=== PATIENT | male | born 1965 | race Caucasian/White ===

== ENCOUNTER → 2016-02-17 | Outpatient (CLI) | payer BC ==
[~2016-02-17] MED LIST: CLR10 PO; GLC/500 PO; OXYC-57 PO; PHEN-775 PO; RIVA1TAB4 PO; TAMS0.4C38 PO; TRAM-10 PO
--- NOTE | 2016-02-17 13:03 | DIAGNOSTIC IMAGING REPORT ---
RIGHT LOWER EXTREMITY VENOUS DOPPLER CLINICAL HISTORY: Follow up deep venous thrombus. COMPARISON STUDY: Right lower extremity venous Doppler November 18, 2015. TECHNIQUE: Sonography of the deep venous system of the right lower extremity was performed. Compression and augmentation were evaluated. FINDINGS: The right common femoral vein is patent. There is nonocclusive thrombus within right distal superficial femoral vein. There is extensive thrombus within the right popliteal vein. A small portion is occlusive. There is nonocclusive thrombus within the right peroneal and posterior tibial veins. Comparison by sonography is difficult. The extent of thrombosis is similar to exam of November 18, 2015 with possible slight improvement. IMPRESSION: Persistent deep venous thrombus within the right femoral, popliteal, posterior tibial and peroneal veins. Comparison by sonography is difficult although the amount of thrombus appears relatively similar to exam of November 18, 2015 with possible slight improvement. Electronically signed by: Emmett Velasco M.D. 02/17/2016 1:01 PM Dictated Date/Time: 02/17/2016 12:58 PM
== END | disposition home or self-care (01) ==
LOC: C.ULTR 12:04
PROVIDERS: ATTEND Family Medicine
DX: I82.4Z1 Acute embolism and thrombosis of unspecified deep veins of right distal lower extremity (principal)

== ENCOUNTER 2016-05-14 20:56 | Emergency (ER) | payer BC ==
[~2016-05-14] VITALS: Ht 188 cm; Wt 125.1 kg
[2016-05-14 21:14] VITALS: TEMP 37.7; Ht 188 cm; Wt 125.1 kg
[2016-05-14] MEDS ORDERED: GLC/500 PO (21:33)
[2016-05-14] MEDS ORDERED: RIVA1TAB4 PO (21:33)
[2016-05-14] MEDS ORDERED: CLR10 PO (21:33)
--- NOTE | 2016-05-14 21:43 | DIAGNOSTIC IMAGING REPORT ---
RIGHT HAND 3 VIEWS HISTORY: right wrist pain Right COMPARISON: None. FINDINGS: There is no fracture or dislocation. Soft tissues are unremarkable. No radiopaque foreign bodies. IMPRESSION: No fractures. Electronically signed by: Ricardo Joshi M.D. 05/14/2016 9:41 PM Dictated Date/Time: 05/14/2016 9:36 PM
[2016-05-14] MEDS ORDERED: TRAMADOL HCL 50 MG TAB PO STA (21:56)
[2016-05-14 22:16] LABS: BASO % 0.5 %; BASO ABS # 0.04 K/uL (0-0.2); COMPLETE YES; EOS % 2.1 %; HEMATOCRIT 43.8 % (42-52); IG% 0.2 %; LYMPH % 13.4 %; LYMPH ABS # 1.17 K/uL (1.2-3.4); MEAN CELL VOLUME 85.9 fL (80-100); MEAN CORPUSCULAR HEMOGLOBIN 30.2 pg (25-34); MEAN CORPUSCULAR HGB CONC 35.2 g/dl (32-36); MONO % 7.8 %; PLATELET COUNT 200 K/uL (130-400); WHITE BLOOD COUNT 8.75 K/uL (4.8-10.8)
--- NOTE | 2016-05-14 22:23 | DIAGNOSTIC IMAGING REPORT ---
RIGHT WRIST 5 VIEWS HISTORY: right wrist pain Right COMPARISON: None. FINDINGS: There is no fracture or dislocation. Mild soft tissue swelling. No radiopaque foreign bodies. IMPRESSION: No fractures. Electronically signed by: Ricardo Joshi M.D. 05/14/2016 10:21 PM Dictated Date/Time: 05/14/2016 10:20 PM
[2016-05-14 22:40] LABS: BUN/CREATININE RATIO 15.3 (10-20); C-REACTIVE PROTEIN 0.94 mg/dl (0-0.29); CREATININE 1.1 mg/dl (0.60-1.40); POTASSIUM 4.1 mmol/L (3.5-5.1)
[2016-05-14 22:47] LABS: URIC ACID 8.4 mg/dl (2.6-7.2)
[2016-05-14 23:12] LABS: LYME DISEASE AB IGG NEG (NEG); LYME DISEASE AB IGM NEG (NEG)
[2016-05-14] MEDS ORDERED: TRAM-10 PO (23:37)
[2016-05-14] MEDS ORDERED: TRAMADOL HCL 50 MG HOME PACK PO ONE (23:45)
[2016-05-14 23:46] VITALS: BP 144/87; PULSE 74; O2SAT 99
--- NOTE | 2016-05-15 03:49 | EMERGENCY ROOM VISIT NOTE ---
History First contact with patient: 21:48 Chief Complaint: WRIST PAIN Stated Complaint: R WRIST INJURY History of Present Illness The patient is a 50 year old male who presents to the Emergency Room with complaints of right wrist pain and swelling for the past day who did a lot of outdoor work yesterday. Patient currently on Xarelto for DVT in the right leg. He has a history Of gout but this feels different. He's had tick bites before. Patient denies fall, direct injury to the wrist, hand pain, forearm pain, elbow pain, numbness, tingling, fever, chills. Patient states movement makes it worse and nothing makes it better. Pain is currently 5 out of 10. He tried Tylenol with no relief of symptoms. Review of Systems See HPI for pertinent positives & negatives. A total of 6 systems reviewed and were otherwise negative. Past Medical/Surgical History Gout, diabetes, DVT, seasonal allergies Social History Smoking Status: Never Smoker Smokeless Tobacco Use: No Alcohol Use: none Drug Use: none Occupation Status: employed Current/Historical Medications Scheduled Loratadine (Claritin), 10 MG PO DAILY Metformin Hcl (Glucophage), 500 MG PO DAILY Rivaroxaban (Xarelto), 20 MG PO DAILY Scheduled PRN Tramadol (Ultram), 1 TAB PO Q4H PRN for Pain Physical Exam Vital Signs Date Time Temp Pulse Resp B/P Pulse Ox O2 Delivery O2 Flow Rate FiO2 05/14/16 23:46 74 16 144/87 99 05/14/16 21:14 37.7 76 18 154/93 100 Room Air Pain Rating (0-10): 0 Physical Exam VITALS: Vitals are noted on the nurse's note and reviewed by myself. Vital signs stable. GENERAL: Pleasant male, in no acute distress, nondiaphoretic, well-developed well-nourished. SKIN: Capillary reflex less than 2 seconds. HEENT: Normocephalic. PERRLA. EOMI. Nares patent. Mucous membranes moist. Neck is supple without nuchal rigidity. HEART: Regular rate and rhythm without murmurs gallops or rubs. LUNGS: Clear to auscultation bilaterally without wheezes, rales or rhonchi. No retractions or accessory muscle use. MUSCULOSKELETAL: No gross musculoskeletal defects. Right wrist tender to palpation with increased pain with range of motion is slightly edematous without erythema or warmth. Right forearm, right elbow, right hand nontender to palpation with full range of motion. Radial pulses +2 equal present bilaterally. NEURO: Patient was alert and oriented to person place and time. Normal sensation to light and sharp touch. No focal neurological deficits. Medical Decision & Procedures Laboratory Results 05/14/16 22:03 Red Blood Count 5.10, Mean Corpuscular Volume 85.9, Mean Corpuscular Hemoglobin 30.2, Mean Corpuscular Hemoglobin Concent 35.2, Mean Platelet Volume 9.0, Neutrophils (%) (Auto) 76.0, Lymphocytes (%) (Auto) 13.4, Monocytes (%) (Auto) 7.8, Eosinophils (%) (Auto) 2.1, Basophils (%) (Auto) 0.5, Neutrophils # (Auto) 6.66, Lymphocytes # (Auto) 1.17, Monocytes # (Auto) 0.68, Eosinophils # (Auto) 0.18, Basophils # (Auto) 0.04 05/14/16 22:03 Test 05/14/16 22:03 White Blood Count 8.75 K/uL (4.8-10.8) Red Blood Count 5.10 M/uL (4.7-6.1) Hemoglobin 15.4 g/dL (14.0-18.0) Hematocrit 43.8 % (42-52) Mean Corpuscular Volume 85.9 fL (80-100) Mean Corpuscular Hemoglobin 30.2 pg (25-34) Mean Corpuscular Hemoglobin Concent 35.2 g/dl (32-36) Platelet Count 200 K/uL (130-400) Mean Platelet Volume 9.0 fL (7.4-10.4) Neutrophils (%) (Auto) 76.0 % Lymphocytes (%) (Auto) 13.4 % Monocytes (%) (Auto) 7.8 % Eosinophils (%) (Auto) 2.1 % Basophils (%) (Auto) 0.5 % Neutrophils # (Auto) 6.66 K/uL (1.4-6.5) Lymphocytes # (Auto) 1.17 K/uL (1.2-3.4) Monocytes # (Auto) 0.68 K/uL (0.11-0.59) Eosinophils # (Auto) 0.18 K/uL (0-0.5) Basophils # (Auto) 0.04 K/uL (0-0.2) RDW Standard Deviation 43.3 fL (36.4-46.3) RDW Coefficient of Variation 13.8 % (11.5-14.5) Immature Granulocyte % (Auto) 0.2 % Immature Granulocyte # (Auto) 0.02 K/uL (0.00-0.02) Erythrocyte Sedimentation Rate 10 mm/hr (0-14) Anion Gap 8.0 mmol/L (3-11) Est Creatinine Clear Calc Drug Dose 114.2 ml/min Estimated GFR () 90.9 Estimated GFR (Non- 78.4 BUN/Creatinine Ratio 15.3 (10-20) Uric Acid 8.4 mg/dl (2.6-7.2) Calcium Level 9.0 mg/dl (8.5-10.1) C-Reactive Protein 0.94 mg/dl (0-0.29) Lyme Disease IgG Antibody NEG (NEG) Lyme Disease IgM Antibody NEG (NEG) Medications Administered Medications (Trade) Dose Ordered Sig/Javed Route Start Time Stop Time Status Last Admin Dose Admin Tramadol HCl (Ultram Tab) 50 mg ONE STAT PO 05/14/16 21:56 05/14/16 21:58 DC 05/14/16 22:02 50 MG Tramadol HCl (Ultram Home Pack) 1 homepack UD ONCE PO 05/14/16 23:45 05/14/16 23:46 DC 05/14/16 23:44 1 HOMEPACK ED Course Prior records reviewed and summarized as above. Triage Nursing notes reviewed. The patient's history was concerning for swelling and pain of the wrist. Differential diagnosis: Etiologies such as sprain, strain, fracture, gout, dislocation, cellulitis, septic joint, DVT, Lyme's disease, tendinitis, carpal tunnel, as well as others were entertained.. Physical examination: As above ER treatment provided: Ultram, wrist splint On reassessment the patient felt better. Diagnostics interpreted by me: The labs revealed slightly elevated uric acid. No leukocytosis. Negative Lyme' s test Imaging studies: Wrist and hand x-ray negative for fracture per radiology This appears to be wrist pain most likely from overuse. Patient was placed in a splint for comfort and neurovascular status is rechecked after placement and is intact. He was advised to follow-up with his orthopedist, Dr. Plasencia, in a few days or here in the ER sooner for severe pain, numbness, tingling, fevers, worsening signs or symptoms or as needed. She had no signs of septic joint. No white count. He was well-appearing. By the evaluation outlined above emergent etiologies such as fracture, septic joint, DVT, as well as others were deemed relatively unlikely. The pt informed about the findings as listed above. All questions were answered and pleased with the treatment. Return instructions were outlined and the patient was discharged in stable condition. Outpatient prescription management: Ultram Referral: The patient was referred back to the orthopedics for follow-up in 2 to 3 days for a recheck of the current condition. Case reviewed with my attending Medical Decision As above Impression Primary Impression: Wrist pain, right Departure Information Dispostion Home / Self-Care Condition GOOD Prescriptions Tramadol (Ultram) 50 Mg Tab 1 TAB PO Q4H Y for Pain, #14 TAB For Initial Treatment Prov: Wilma Pierce ., JEEVAN 05/14/16 Referrals Yimi Daniels M.D. (PCP) Forms WORK / SCHOOL INSTRUCTIONS, HOME CARE DOCUMENTATION FORM, IMPORTANT VISIT INFORMATION Patient Instructions My [facility] Additional Instructions Acetaminophen(Tylenol) may be used for fever or pain. Use 1000mg every six hours as needed. Avoid using more than 3000mg in a 24 hour period. This medication can be taken if you need to drive, work, or perform activities which may be dangerous when taking narcotic pain medication. Ultram 50m tablet every 4 hours as needed for severe pain. Ice compresses for 20 minutes at a time four times daily for 2-3 days. Rest and elevate your injury. Wear wrist splint for comfort. Do not have it so tight that you cannot feel your fingers. Continue current medications. Return to the ER immediately for any numbness, tingling, severe pain, extreme swelling in the extremity or as needed. Call your Orthopedics tomorrow to arrange follow up for your injury.
[2016-10-12] MEDS ORDERED: TAMS0.4C38 PO (13:32)
[2016-10-13] MEDS ORDERED: OXYC-57 PO (10:31)
[2016-10-13] MEDS ORDERED: PHEN-775 PO (10:31)
== END 2016-05-14 23:47 | disposition home or self-care (01) ==
LOC: C.EDB 20:58
DX: M25.531 Pain in right wrist (principal); E11.9 Type 2 diabetes mellitus without complications; M10.9 Gout, unspecified; Z86.718 Personal history of other venous thrombosis and embolism; Z79.84 Long term (current) use of oral hypoglycemic drugs; Z79.899 Other long term (current) drug therapy

== ENCOUNTER → 2016-05-26 | Outpatient (CLI) | payer BC ==
--- NOTE | 2016-05-26 11:29 | DIAGNOSTIC IMAGING REPORT ---
ULTRASOUND RIGHT LOWER EXTREMITY VENOUS CLINICAL HISTORY: Follow-up deep venous thrombosis. COMPARISON STUDY: Right lower extremity venous ultrasound dated 02/17/2016. TECHNIQUE: Real-time, grayscale, and color Doppler sonography of the deep veins of the right lower extremity was performed from the inguinal crease to the calf. Compression and augmentation were utilized. FINDINGS: Nonocclusive deep venous thrombosis is again seen within the right popliteal vein extending into the calf within a posterior tibial vein. The remaining calf vessels are patent. The common femoral and superficial femoral veins are patent and normally compressible. The greater saphenous vein and the profunda femoris vein at the junction with the common femoral vein are clear. The visualized calf veins are patent. IMPRESSION: There is nonocclusive deep venous thrombosis identified within the right popliteal vein and extending into the calf within a posterior tibial vein. This is likely chronic, and the burden of thrombus appears modestly improved from 02/17/2016. Electronically signed by: Sina Ureña M.D. 05/26/2016 11:26 AM Dictated Date/Time: 05/26/2016 11:23 AM
== END | disposition home or self-care (01) ==
LOC: C.ULTR 10:54
PROVIDERS: ATTEND Family Medicine
DX: I82.401 Acute embolism and thrombosis of unspecified deep veins of right lower extremity (principal)

== ENCOUNTER → 2016-06-07 | Outpatient (CLI) | payer BC ==
--- NOTE | 2016-06-07 11:08 | DIAGNOSTIC IMAGING REPORT ---
KUB CLINICAL HISTORY: R39.12 Weak urinary [id number] HISTORY OF BILATERAL NEPHROLITHIASIS COMPARISON STUDY: No previous studies for comparison. FINDINGS: There are clustered calcifications projected over the upper pole the left kidney, the largest of which measures 3 mm. Renal calculi are suspected. No definite right renal calculi are visualized. There is no pathologic bowel dilatation. IMPRESSION: Left-sided nephrolithiasis. Electronically signed by: Juaquin Cardona M.D. 06/07/2016 11:06 AM Dictated Date/Time: 06/07/2016 11:05 AM
== END | disposition home or self-care (01) ==
LOC: C.RAD 10:34
PROVIDERS: ATTEND Urology
DX: R39.12 Poor urinary stream (principal); N20.0 Calculus of kidney

== ENCOUNTER → 2016-08-31 | Outpatient (CLI) | payer BC ==
--- NOTE | 2016-08-31 12:55 | DIAGNOSTIC IMAGING REPORT ---
VENOUS DOPP LOWER EXT UNILAT CLINICAL HISTORY: DVT LE TECHNIQUE: Venous Doppler COMPARISON STUDY: 05/26/2016 FINDINGS: Identical study compared to the prior exam. Nonocclusive thrombus within the right popliteal vein as well as a solitary posterior tibial vein. No new or interval findings. All remaining venous structures are patent. IMPRESSION: Chronic thrombophlebitis involving the right popliteal vein and posterior tibial veins. This is unchanged from the prior study. No acute or interval process. The above report was generated using voice recognition software. It may contain grammatical, syntax or spelling errors. Electronically signed by: Heladio Jones M.D. 08/31/2016 12:54 PM Dictated Date/Time: 08/31/2016 12:52 PM
--- NOTE | 2016-08-31 19:06 | ECHOCARDIOGRAM REPORT ---
*NOTICE TO RECEIVING DEMOCRAT AGENCY This information is strictly Confidential and protected under [place] law. [place] law prohibits you from making any further disclosure of this information unless further disclosure is expressly permitted by the written consent of the person to whom it pertains or is authorized by law. A general authorization for the release of medical or other information is not sufficient for this purpose. Hospital accepts no responsibility if the information is made available to any other person, INCLUDING THE PATIENT. Interpretation Summary * Name: KIRT STEPHENSON Study Date: 08/31/2016 12:59 PM * Patient Location: [facility] * : 1965 (M/d/yyyy) Gender: Male Height: 75 in * Age: 50 yrs Ethnicity: CA Weight: 270 lb * Ordering Physician: Yimi Daniels * Referring Physician: Yimi Daniels * Performed By: Adan Reno RCS * * Reason For Study: DVT * BSA: 2.5 m2 * -- Conclusions -- * 1. Normal left ventricular size with hyperdynamic systolic function. EF 65-70%. No regional wall motion abnormalities. No left ventricular hypertrophy. Type I diastolic dysfunction. * 2. Mild left atrial dilation. * 3. No significant valvular abnormalities. * 4. Normal estimated right ventricular systolic pressure; RVSP 24 mmHg. * 5. No prior study available for comparison. Procedure Details * Left Ventricle The left ventricle is normal in size. There is normal left ventricular wall thickness. Ejection Fraction = 65-70%. The left ventricle is hyperdynamic. No regional wall motion abnormalities noted. * Right Ventricle The right ventricle is normal in size and function. The right ventricular systolic function is normal as assessed by tricuspid annular plane systolic excursion (TAPSE) (normal >1.5 cm). * Atria The left atrium is mildly dilated. Right atrial size is normal. There is no evidence of atrial septal defect, but resolution does not allow assessment for a patent foramen ovale. * Mitral Valve The mitral valve is normal in structure and function. There is no mitral regurgitation noted. * Tricuspid Valve The tricuspid valve is not well visualized, but is grossly normal. There is no tricuspid stenosis. Significant tricuspid regurgitation is absent. * Aortic Valve The aortic valve is trileaflet. No hemodynamically significant valvular aortic stenosis. No aortic regurgitation is present. * Pulmonic Valve The pulmonary valve is inadequately visualized, but the Doppler data is adequate for interpretation. There is no pulmonic valvular stenosis. There is no significant pulmonary regurgitation. * Great Vessels The aortic root is normal size. Normal pulmonary venous flow pattern. * Pericardium/Pleural There is no pericardial effusion. * Great Vessels IVC not well visualized, but appears top normal in size with normal inspiratory collapse. * * MMode 2D Measurements and Calculations * IVSd 0.86 cm * * LVIDd 4.8 cm * LVIDs 2.8 cm * LVPWd 0.98 cm * * IVS/LVPW 0.88 * FS 41.6 % * EDV(Teich) 105.1 ml * ESV(Teich) 28.9 ml * EF(Teich) 72.5 % * * EDV(cubed) 107.4 ml * ESV(cubed) 21.4 ml * EF(cubed) 80.1 % * * LV mass(C)d 149.1 grams * LV mass(C)dI 59.8 grams/m\S\2 * * SV(Teich) 76.2 ml * SI(Teich) 30.6 ml/m\S\2 * SV(cubed) 86.0 ml * SI(cubed) 34.5 ml/m\S\2 * * Ao root diam 3.5 cm * Ao root area 9.8 cm\S\2 * * LVOT diam 2.2 cm * LVOT area 3.9 cm\S\2 * * LVAd ap4 32.3 cm\S\2 * LVLd ap4 9.8 cm * EDV(MOD-sp4) 85.8 ml * EDV(sp4-el) 90.3 ml * LVAs ap4 16.8 cm\S\2 * LVLs ap4 7.5 cm * ESV(MOD-sp4) 31.0 ml * ESV(sp4-el) 32.0 ml * EF(MOD-sp4) 63.8 % * EF(sp4-el) 64.5 % * * SV(MOD-sp4) 54.8 ml * SI(MOD-sp4) 22.0 ml/m\S\2 * * SV(sp4-el) 58.2 ml * SI(sp4-el) 23.4 ml/m\S\2 * * * * Doppler Measurements and Calculations * MV E max yahir 68.1 cm/sec * MV A max yahir 88.9 cm/sec * * MV E/A 0.77 * * MV dec time 0.25 sec * * Ao V2 max 163.1 cm/sec * Ao max PG 10.6 mmHg * Ao max PG (full) 0.92 mmHg * NAZIA(V,A) 3.7 cm\S\2 * NAZIA(V,D) 3.7 cm\S\2 * * LV V1 max PG 9.7 mmHg * * LV V1 max 155.9 cm/sec * * TR max yahir 229.8 cm/sec * RVSP(TR) 24.1 mmHg * * RAP systole 3.0 mmHg * *
== END | disposition home or self-care (01) ==
LOC: C.ULTR 12:14
PROVIDERS: ATTEND Family Medicine
DX: I82.409 Acute embolism and thrombosis of unspecified deep veins of unspecified lower extremity (principal)

== ENCOUNTER → 2016-09-25 | Outpatient (CLI) | payer BC ==
--- NOTE | 2016-09-25 15:53 | DIAGNOSTIC IMAGING REPORT ---
KUB CLINICAL HISTORY: Nephrolithiasis. FINDINGS: 2 AP supine abdominal radiographs are compared to study dated 06/07/2016 and correlated with abdominal CT dated 09/12/2016. There is a nonobstructed abdominal bowel gas pattern. A 6 mm right ureteral calculus projects over the right transverse process of L4. An additional 4 mm nonobstructing calculus projects over the upper pole of the left kidney. No left ureteral calculus is seen. The bony structures appear intact. IMPRESSION: 1. A 6 mm calculus in the mid right ureter projects over the L4 transverse process. 2. An additional nonobstructing calculus is seen in the upper pole of the left kidney. Electronically signed by: Sina Ureña M.D. 09/25/2016 3:52 PM Dictated Date/Time: 09/25/2016 3:50 PM
== END | disposition home or self-care (01) ==
LOC: C.RAD 15:32
PROVIDERS: ATTEND Urology
DX: N20.0 Calculus of kidney (principal)

== ENCOUNTER → 2016-10-10 | Outpatient (CLI) | payer BC ==
[2016-10-10 13:23] LABS: BASO % 0.8 %; BASO ABS # 0.04 K/uL (0-0.2); COMPLETE YES; EOS % 4.9 %; HEMATOCRIT 46.6 % (42-52); IG% 0.2 %; LYMPH % 28.2 %; LYMPH ABS # 1.37 K/uL (1.2-3.4); MEAN CELL VOLUME 89.3 fL (80-100); MEAN CORPUSCULAR HEMOGLOBIN 29.1 pg (25-34); MEAN CORPUSCULAR HGB CONC 32.6 g/dl (32-36); MEAN PLATELET VOLUME 9.4 fL (7.4-10.4); MONO % 9.3 %; NEUT % 56.6 %; PLATELET COUNT 200 K/uL (130-400); RED BLOOD COUNT 5.22 M/uL (4.7-6.1); WHITE BLOOD COUNT 4.85 K/uL (4.8-10.8)
[2016-10-10 13:47] LABS: BLOOD UREA NITROGEN 12 mg/dl (7-18); BUN/CREATININE RATIO 12.2 (10-20); CALCIUM 9.3 mg/dl (8.5-10.1); CARBON DIOXIDE 30 mmol/L (21-32); CHLORIDE 104 mmol/L (98-107); CREATININE 0.95 mg/dl (0.60-1.40); GLUCOSE 91 mg/dl (70-99); POTASSIUM 4.1 mmol/L (3.5-5.1); SODIUM 138 mmol/L (136-145)
== END | disposition home or self-care (01) ==
LOC: C.CPL 12:35
PROVIDERS: ATTEND Urology
DX: N20.0 Calculus of kidney (principal)

== ENCOUNTER → 2016-10-12 | Outpatient (CLI) | payer BC ==
--- NOTE | 2016-10-12 15:35 | DIAGNOSTIC IMAGING REPORT ---
KUB CLINICAL HISTORY: Nephrolithiasis. FINDINGS: 2 AP supine abdominal radiographs are compared to study dated 09/25/2016 and correlated with abdominal CT dated 09/12/2016. There is a nonobstructed abdominal bowel gas pattern. A 6 mm right ureteral calculus has passed distally, and now projects over the vesicoureteral junction. An additional 4 mm nonobstructing calculus projects over the upper pole of the left kidney. No left ureteral calculus is seen. The bony structures appear intact. IMPRESSION: 1. A 6 mm calculus right renal calculus has passed distally as compared 09/25/2016, now projecting over the vesicoureteral junction. 2. An additional nonobstructing calculus is seen in the upper pole of the left kidney. Electronically signed by: Sina Ureña M.D. 10/12/2016 3:34 PM Dictated Date/Time: 10/12/2016 3:33 PM
== END | disposition home or self-care (01) ==
LOC: C.RAD1850 15:18
PROVIDERS: ATTEND Urology
DX: N20.0 Calculus of kidney (principal)

== ENCOUNTER → 2016-10-13 | Day surgery (SDC) | payer BC ==
[2016-10-12 13:32] VITALS: Ht 188 cm; Wt 125.0 kg
[~2016-10-13] VITALS: Ht 188 cm; Wt 125.0 kg
[~2016-10-13] MED LIST changes: +ATROPINE SULFATE 0.1 MG/ML 5ML SYR IV PRN; +CIPROFLOXACIN 400MG / D5W IV SCH; +DEXAMETHASONE SOD INJ 4 MG/ML VIAL ONE; +EpHEDrine SULFATE INJ 50 MG/ML AMP IV PRN; +FENTANYL CITRATE INJ 50 MCG/1 ML 2 ML VIAL IV PRN; +FENTANYL CITRATE INJ 50 MCG/1 ML 2 ML VIAL ONE; +FLUMAZENIL 0.1 MG/1 ML 10 ML VIAL IV PRN; +LABETALOL HCL IV 5 MG/ML 20ML IV PRN; +LACTATED RINGER'S 1000ML 1,000 ML IV SCH; +LIDOCAINE HCL 2% 2 ML VIAL (20MG/ML) ONE; +MIDAZOLAM HCL 1 MG/ML 2ML VIAL ONE; +NALOXONE HCL 0.4 MG/1 ML VIAL/CARP IV PRN; +ONDANSETRON INJ 2 MG/ML 2 ML VIAL IV PRN; +ONDANSETRON INJ 2 MG/ML 2 ML VIAL ONE; +PROMETHAZINE HCL INJ 12.5 MG in SODIUM CHLORIDE 0.9% 50ML 50 ML IV PRN; +PROPOFOL IV EMULSION 10 MG/ML 20 ML VIAL IV ONE; -TRAM-10 PO
--- NOTE | 2016-10-13 10:29 | History & Physical Bridge - SC ---
H&P Re-Evaluation Bridge Note: I have examined the patient, reviewed the History & Physical and in the interval since the performance of the History & Physical I have noted the following changes of clinical significance: No changes noted
--- NOTE | 2016-10-13 10:58 | Discharge Instructions ---
Discharge Instructions Date of Service Oct 13, 2016. Admission Reason for Admission: Stones Discharge Discharge Diagnosis / Problem: Stone Discharge Goals Goal(s): Decrease discomfort, Improve function Activity Recommendations Activity Limitations: resume your previous activity Driving or Machine Use: no limitations . Instructions / Follow-Up Instructions / Follow-Up Expect flank pain and discomfort. May have bruising. May have blood in urine. May pass sediment or clots. Call if any fevers or issues. Discharge Diet Recommended Diet: Regular Diet Procedures Procedures Performed: ESWL Pending Studies Studies pending at discharge: no Medical Emergencies . Who to Call and When: Medical Emergencies: If at any time you feel your situation is an emergency, please call 911 immediately. . Non-Emergent Contact Non-Emergency issues call your: Primary Care Provider, Urologist Call Non-Emergent contact if: you have a fever, temperature is above 101.5, your pain is not controlled . . "Provider Documentation" section prepared by Yimi aFrris,. . VTE Core Measure Inpt VTE Proph given/why not?: Bettina Méndez, CESAR's
--- NOTE | 2016-10-13 11:43 | [facility] Operative Report ---
Operative Report Operative Date Oct 13, 2016. Pre-Operative Diagnosis Right Ureteral Stone Post-Operative Diagnosis Right Ureteral Stone Procedure(s) Performed ESWL Surgeon Brenton Orthopedic Assistant Surgeon(s) None Estimated Blood Loss None Findings Right stone. Risks and benefits discussed at length. Fluids (cc crystalloids) See Anes Specimens None Drains None Complication(s) None Disposition Recovery Room / PACU Implants None Indications Patient had stone that failed to pass. Description of Procedure Patient was consented and brought to the operative suite. Patient was placed supine and under general anesthesia. The patient was prepped and draped in the normal routine. A time out was completed. The stone was visualized and identified with fluoroscopy and real time monitoring utilized fluoroscopy through the procedure. Shockwave lithotripsy commenced and 3000 shocks at a rate of 100 was administered. The stone was adequately shattered. The patient was cleaned, aroused from anesthesia, and transferred to the PACU. I attest to the content of the Intraoperative Record and any orders documented therein. Any exceptions are noted below.
[2016-10-13 12:30] VITALS: TEMP 36.7
[2016-10-13 12:52] VITALS: BP 126/86; PULSE 60; O2SAT 97
--- NOTE | 2016-10-13 12:55 | Anesthesia Progress Nt - [facility] ---
Anesthesia Post Op Note Date & Time Oct 13, 2016 at 12:54 Vital Signs Pain Intensity: 0 Vital Signs Past 12 Hours Date Time Temp Pulse Resp B/P (MAP) Pulse Ox O2 Delivery O2 Flow Rate FiO2 10/13/16 12:52 60 18 126/86 (99) 97 Room Air 10/13/16 12:30 36.7 56 16 132/87 (102) 97 Room Air 10/13/16 12:21 66 16 96 10/13/16 12:21 68 16 10/13/16 12:20 125/92 10/13/16 12:20 36.4 68 12 125/92 96 Diffusion Mask 10/13/16 12:16 72 15 119/86 93 10/13/16 12:16 72 15 10/13/16 12:11 67 21 10/13/16 12:11 75 21 97 10/13/16 12:10 124/86 10/13/16 12:06 62 17 99 10/13/16 12:06 64 17 10/13/16 12:05 121/83 10/13/16 12:03 70 27 97 10/13/16 12:03 70 27 10/13/16 12:00 114/75 10/13/16 11:58 55 13 10/13/16 11:58 54 13 99 10/13/16 11:55 108/78 10/13/16 11:53 53 12 99 10/13/16 11:53 54 12 10/13/16 11:50 121/80 10/13/16 11:49 118/84 10/13/16 11:48 56 93 10/13/16 11:48 56 10/13/16 11:48 36.4 53 16 118/84 98 Diffusion Mask 6 10/13/16 09:00 36.6 85 18 161/95 (117) 97 Room Air Notes Mental Status: alert / awake / arousable, participated in evaluation Pt Amnestic to Procedure: Yes Nausea / Vomiting: adequately controlled Pain: adequately controlled Airway Patency, RR, SpO2: stable & adequate BP & HR: stable & adequate Hydration State: stable & adequate Anesthetic Complications: no major complications apparent
== END | disposition home or self-care (01) ==
LOC: X.SURG 08:26
PROVIDERS: ATTEND Urology
DX: N20.1 Calculus of ureter (principal); E11.9 Type 2 diabetes mellitus without complications; Z86.718 Personal history of other venous thrombosis and embolism; Z79.01 Long term (current) use of anticoagulants; Z80.49 Family history of malignant neoplasm of other genital organs

== ENCOUNTER → 2016-10-24 | Outpatient (CLI) | payer BC ==
[~2016-10-24] MED LIST changes: -ATROPINE SULFATE 0.1 MG/ML 5ML SYR IV PRN; -CIPROFLOXACIN 400MG / D5W IV SCH; -DEXAMETHASONE SOD INJ 4 MG/ML VIAL ONE; -EpHEDrine SULFATE INJ 50 MG/ML AMP IV PRN; -FENTANYL CITRATE INJ 50 MCG/1 ML 2 ML VIAL IV PRN; -FENTANYL CITRATE INJ 50 MCG/1 ML 2 ML VIAL ONE; -FLUMAZENIL 0.1 MG/1 ML 10 ML VIAL IV PRN; -LABETALOL HCL IV 5 MG/ML 20ML IV PRN; -LACTATED RINGER'S 1000ML 1,000 ML IV SCH; -LIDOCAINE HCL 2% 2 ML VIAL (20MG/ML) ONE; -MIDAZOLAM HCL 1 MG/ML 2ML VIAL ONE; -NALOXONE HCL 0.4 MG/1 ML VIAL/CARP IV PRN; -ONDANSETRON INJ 2 MG/ML 2 ML VIAL IV PRN; -ONDANSETRON INJ 2 MG/ML 2 ML VIAL ONE; -OXYC-57 PO; -PROMETHAZINE HCL INJ 12.5 MG in SODIUM CHLORIDE 0.9% 50ML 50 ML IV PRN; -PROPOFOL IV EMULSION 10 MG/ML 20 ML VIAL IV ONE; -RIVA1TAB4 PO
--- NOTE | 2016-10-24 13:24 | DIAGNOSTIC IMAGING REPORT ---
KUB CLINICAL HISTORY: Nephrolithiasis. COMPARISON STUDY: CT of the abdomen and pelvis September 12, 2016 and KUB October 12, 2016. FINDINGS: A probable 5 mm left upper pole renal calculus is noted. A 6 mm right pelvic calcification likely reflects the right ureteral calculus at the ureterovesical junction. IMPRESSION: 1. 6 mm right pelvic calcification which likely reflects the right ureteral calculus which is now located at the ureterovesical junction. 2. Left-sided nephrolithiasis. Electronically signed by: Emmett Velasco M.D. 10/24/2016 1:22 PM Dictated Date/Time: 10/24/2016 1:20 PM
== END | disposition home or self-care (01) ==
LOC: C.RAD1850 09:47
PROVIDERS: ATTEND Urology
DX: N20.0 Calculus of kidney (principal)

== ENCOUNTER → 2016-11-13 | Outpatient (CLI) | payer BC ==
[~2016-11-13] MED LIST changes: +OPTIRAY 300 IV PRN; -PHEN-775 PO
--- NOTE | 2016-11-13 14:20 | DIAGNOSTIC IMAGING REPORT ---
IVP W/OR W/O TOMOGRAMS CLINICAL HISTORY: N20.0 nephrolithiasis COMPARISON STUDY: CT scan dated September 12, 2016, KUB dated October 24, 2018 FINDINGS: Architecture Intern film reveals a 4 mm upper pole left renal calcification suspicious for a calculus. The previously identified right pelvic basin calcification is no longer visualized. This likely indicates a passed calculus. The patient was injected 100 cc of Omnipaque 300. The 1 minute film reveals prompt bilateral nephrograms. Renal size is relatively symmetric. There is prompt bilateral excretion. Single nondilated ureters drain each kidney. No nephrotomographic defects are visualized. There were no collecting system or ureteral filling defects. No obstructive changes were evident. IMPRESSION: 1. 4 mm upper pole left renal calculus 2. Apparent interval passage of the previously described distal right ureteral calculus 3. No obstructive changes identified Electronically signed by: Juaquin Cardona M.D. 11/13/2016 2:18 PM Dictated Date/Time: 11/13/2016 2:16 PM
== END | disposition home or self-care (01) ==
LOC: C.RAD 12:31
PROVIDERS: ATTEND Urology
DX: N20.0 Calculus of kidney (principal)

== ENCOUNTER → 2016-11-14 | Outpatient (CLI) | payer BC ==
[~2016-11-14] MED LIST changes: -OPTIRAY 300 IV PRN
== END | disposition home or self-care (01) ==
LOC: C.LABSPEC 17:09
PROVIDERS: ATTEND Urology
DX: N20.0 Calculus of kidney (principal)

== ENCOUNTER → 2016-11-15 | Outpatient (CLI) | payer BC ==
[2016-11-15 10:41] LABS: BLOOD UREA NITROGEN 16 mg/dl (7-18); BUN/CREATININE RATIO 15.9 (10-20)
== END | disposition home or self-care (01) ==
LOC: C.LAB1850 09:01
PROVIDERS: ATTEND Urology
DX: N20.0 Calculus of kidney (principal)

== ENCOUNTER → 2017-09-11 | Outpatient (CLI) | payer OTHER ==
[~2017-09-11] MED LIST changes: +AMLO2.5T PO; +RIVA1TAB4 PO
--- NOTE | 2017-09-12 20:13 | EXERCISE STRESS ECHO ---
*NOTICE TO RECEIVING REPUBLICAN AGENCY This information is strictly Confidential and protected under [place] law. [place] law prohibits you from making any further disclosure of this information unless further disclosure is expressly permitted by the written consent of the person to whom it pertains or is authorized by law. A general authorization for the release of medical or other information is not sufficient for this purpose. Hospital accepts no responsibility if the information is made available to any other person, INCLUDING THE PATIENT. Interpretation Summary * Name: KIRT STEPHENSON Study Date: 09/11/2017 09:47 AM BP: 124/83 mmHg * Patient Location: [facility] HR: 96 * : 1965 (M/d/yyyy) Gender: Male Height: 73 in * Age: 51 yrs Ethnicity: [place] Weight: 270 lb * Ordering Physician: Yimi Daniels * Referring Physician: Yimi Daniels. * Performed By: Nayeli De Los Santos RCS * * Reason For Study: Chest Pain * BSA: 2.4 m2 * -- Conclusions -- * Stress Echo: * 1. Negative stress echo for ischemia at 91 % MPHR. * 2. Negative exercise ECG for ischemia at 91 % MPHR. * 3. Appropriate blood pressure response to exercise. * 4. No arrhythmia. * 5. Study terminated due to fatigue. No chest pain reported. * 6. Fair exercise tolerance. * Moderately dilated right ventricle with normal systolic function. * Echo: * 1. Normal left ventricular size and systolic function. EF 55-60%. No regional wall motion abnormalities. Mild concentric left ventricular hypertrophy. Type 1 diastolic dysfunction. * 2. Moderately dilated right ventricle with normal systolic function. * 3. Right atrium not well visualized but appears to be moderately dilated. * 4. Mild mitral regurgitation. * 5. Normal estimated right ventricular systolic pressure. Procedure Details * ECHOEX, CPT #[id number] * ECHO DOPPLER, CPT #[id number] * ECHO COLOR FLOW, CPT #[id number] Left Ventricle * The left ventricle is normal in size. * There is mild concentric left ventricular hypertrophy. * Ejection Fraction = 55-60%. * Left ventricular systolic function is normal. * Resting wall motion: Normal. Stress wall motion: Appropriate increase in Left ventricular systolic function and decrease in cavity size. No stress induced segmental wall motion abnormalities. * The left ventricular ejection fraction increases normally with stress. The left ventricular end-systolic cavity size reduces post-stress (normal response). The left ventricular wall motion with stress is normal. Right Ventricle * Moderately dilated right ventricle with normal systolic function. * The right ventricular systolic function is normal as assessed by tricuspid annular plane systolic excursion (TAPSE) (normal >1.5 cm). Atria * The left atrial size is normal. * The right atrium is moderately dilated. * There is no evidence of atrial septal defect, but resolution does not allow assessment for a patent foramen ovale. Mitral Valve * The mitral valve is grossly normal. * There is no mitral valve stenosis. * There is mild mitral regurgitation. Tricuspid Valve * The tricuspid valve is not well visualized. * There is no tricuspid stenosis. * There is trace tricuspid regurgitation. Aortic Valve * The aortic valve is trileaflet. * No hemodynamically significant valvular aortic stenosis. * There is no significant aortic regurgitation. Pulmonic Valve * The pulmonary valve is inadequately visualized, but the Doppler data is adequate for interpretation. * Trace pulmonic valvular regurgitation. Great Vessels * The aortic root is normal size. * Ascending aorta of normal dimension * Aortic arch of normal dimension. * IVC normal in size and inspiratory collapse. Pericardium * There is no pericardial effusion. Stress Parameters * NSR at 82 bpm. * Stress ECG: No ST changes. No arrhythmias. * No arrhythmia were noted with stress. * Rest heart rate was '96' BPM. * Rest blood pressure was '124/83' * Maximum heart rate achieved was 155 bpm. * Maximum heart rate was 91 % of maximum age-predicted heart rate. * Maximum blood pressure was '169/97' * Total exercise time was '07:24' * Maximum exercise MET level achieved was '9.10' METS * Maximum treadmill speed was '3.40' miles per hour. * Maximum treadmill elevation was '14'% grade. MMode 2D Measurements and Calculations IVSd 1.2 cm IVSs 1.4 cm LVIDd 3.8 cm LVIDs 2.4 cm LVPWd 1.2 cm LVPWs 1.5 cm IVS/LVPW 1.0 FS 36.4 % EDV(Teich) 61.8 ml ESV(Teich) 20.5 ml EF(Teich) 66.9 % EDV(cubed) 54.7 ml ESV(cubed) 14.1 ml EF(cubed) 74.3 % % IVS thick 15.8 % % LVPW thick 21.8 % LV mass(C)d 157.4 grams LV mass(C)dI 64.4 grams/m\S\2 LV mass(C)s 114.0 grams LV mass(C)sI 46.7 grams/m\S\2 SV(Teich) 41.3 ml SI(Teich) 16.9 ml/m\S\2 SV(cubed) 40.6 ml SI(cubed) 16.6 ml/m\S\2 Ao root diam 3.4 cm Ao root area 8.8 cm\S\2 ACS 2.0 cm LA dimension 3.6 cm asc Aorta Diam 3.3 cm LA/Ao 1.1 LVAd ap4 41.4 cm\S\2 LVLd ap4 9.3 cm EDV(MOD-sp4) 149.8 ml EDV(sp4-el) 156.9 ml LVAs ap4 25.2 cm\S\2 LVLs ap4 8.1 cm ESV(MOD-sp4) 67.4 ml ESV(sp4-el) 66.7 ml EF(MOD-sp4) 55.0 % EF(sp4-el) 57.5 % LVAd ap2 35.4 cm\S\2 LVLd ap2 9.8 cm EDV(MOD-sp2) 109.0 ml EDV(sp2-el) 108.6 ml LVAs ap2 19.5 cm\S\2 LVLs ap2 7.9 cm ESV(MOD-sp2) 40.4 ml ESV(sp2-el) 40.8 ml EF(MOD-sp2) 62.9 % EF(sp2-el) 62.5 % LVLd %diff 5.2 % EDV(MOD-bp) 127.1 ml LVLs %diff -2.70 % ESV(MOD-bp) 52.8 ml EF(MOD-bp) 58.5 % SV(MOD-sp4) 82.4 ml SI(MOD-sp4) 33.7 ml/m\S\2 SV(MOD-sp2) 68.6 ml SI(MOD-sp2) 28.0 ml/m\S\2 SV(MOD-bp) 74.4 ml SI(MOD-bp) 30.4 ml/m\S\2 SV(sp4-el) 90.2 ml SI(sp4-el) 36.9 ml/m\S\2 SV(sp2-el) 67.8 ml SI(sp2-el) 27.8 ml/m\S\2 Doppler Measurements and Calculations MV E max yahir 81.7 cm/sec MV A max yahir 98.8 cm/sec MV E/A 0.83 MV dec time 0.26 sec Ao V2 max 111.5 cm/sec Ao max PG 5.0 mmHg Ao max PG (full) -0.06 mmHg LV V1 max PG 5.0 mmHg LV V1 max 112.2 cm/sec PA V2 max 105.3 cm/sec PA max PG 4.4 mmHg PI max yahir 137.2 cm/sec PI max PG 7.5 mmHg PI dec slope 263.6 cm/sec\S\2 PI P1/2t 152.4 msec TR max yahir 232.6 cm/sec
== END | disposition home or self-care (01) ==
LOC: C.CPL 09:39
PROVIDERS: ATTEND Family Medicine
DX: R07.9 Chest pain, unspecified (principal)